=== PATIENT | male | born 1995 | race African-American/Black ===

== ENCOUNTER 2023-03-24 08:12 | Day surgery (SDC) | payer OTHER ==
[~2023-03-24] VITALS: Ht 177.8 cm; Wt 80.0 kg
[2023-03-24] VITALS (12 sets, daily range): BP systolic 111–126; BP diastolic 57–77; PULSE 54–72; RESP 10–16; TEMP 98.7; O2SAT 97–100
[2023-03-24] MEDS: famotidine 20mg tablet PO ONE (05:30)
[2023-03-24] MEDS: vancomycin 1,500 MG in NS 300ml IV soln IV ONE (05:30)
[2023-03-24] MEDS: ringers solution, lacted 1,000 ML IV SCH (05:30)
[2023-03-24] MEDS: cefazolin 2gm/D5W 100mL 100 ML IV ONE (05:30)
[~2023-03-24 08:12] MED LIST: LEVA15HF6 INH
[2023-03-24] MEDS ORDERED: epiNEPHrine 1 mg/ml 30ml MDV ONE (11:17)
[2023-03-24] MEDS ORDERED: cloNIDine hcl/PF 100mcg/ml inj ONE (11:32)
[2023-03-24] MEDS ORDERED: ROPIVAcaine 0.5% (5mg/ml) 30ml vial ONE ×2 (11:33→12:19)
[2023-03-24] MEDS ORDERED: midazolam 1 mg/ML 2ml injection ONE (11:34)
[2023-03-24] MEDS ORDERED: epiNEPHrine 1 mg/ml inj ONE (11:39)
[2023-03-24] MEDS ORDERED: ringers solution, lacted 1,000 ML IV SCH (11:40)
[2023-03-24] MEDS ORDERED: proCHLORperazine 10 MG/2 ml inj IV PRN (11:40)
[2023-03-24] MEDS ORDERED: morphine 2 MG/ML inj. syringe IV PRN (11:40)
[2023-03-24] MEDS ORDERED: meperidine/PF 25mg/ml syringe IV PRN ×2 (11:40)
[2023-03-24] MEDS ORDERED: hydrALAZINE 20mg/ml inj. IV PRN (11:40)
[2023-03-24] MEDS ORDERED: labetalol 20mg/4ml (5mg/ml) syringe IV PRN (11:40)
[2023-03-24] MEDS ORDERED: ondansetron/PF 4mg/2ml inj IV PRN (11:40)
[2023-03-24] MEDS ORDERED: morphine 4 MG/ML inj SYRINge IV PRN (11:40)
[2023-03-24] MEDS ORDERED: sevoflurane 250ml liquid IH ONE (11:41)
[2023-03-24] MEDS ORDERED: gelatin sponge, absorbable (Gelfoam 100) sponge TP ONE (11:49)
[2023-03-24] MEDS ORDERED: fentaNYL /PF 50mcg/ml 5ml ampule ONE (12:18)
[2023-03-24] MEDS ORDERED: dexamethasone sod phosphate 4mg/ml inj. ONE (12:19)
[2023-03-24] MEDS ORDERED: ondansetron/PF 4mg/2ml inj ONE (12:19)
[2023-03-24] MEDS ORDERED: LIDOcaine 2% (20mg/ml) 5ml vial ONE (12:19)
[2023-03-24] MEDS ORDERED: propofol inj 20 ML IV ONE (12:19)
[2023-03-24] MEDS: gelatin sponge, absorbable (Gelfoam 100) sponge TP ONE (13:34)
[2023-03-24] MEDS: Thrombin (Bovine) 5,000 unit vial TP ONE (13:35)
[2023-03-24] MEDS: ketorolac trometh. 30mg/ml inj. IV ONE (14:56)
[2023-03-24] MEDS: meperidine/PF 25mg/ml syringe IV PRN (14:57)
[2023-03-24] MEDS: HYDROcodone/acetaminophen 10/325mg tab PO ONE (15:31)
== END 2023-03-24 15:56 ==
LOC: PAS 08:12 → PAS IN 08:15 → UNDOADMIN 08:15 → PAS 15:56
PROVIDERS: ATTEND Orthopaedic Surgery
DX: S83.511A Sprain of anterior cruciate ligament of right knee, initial encounter (principal); S83.211A Bucket-handle tear of medial meniscus, current injury, right knee, initial encounter; J45.909 Unspecified asthma, uncomplicated; F43.10 Post-traumatic stress disorder, unspecified; G89.18 Other acute postprocedural pain; F20.9 Schizophrenia, unspecified; Z79.899 Other long term (current) drug therapy; X58.XXXA Exposure to other specified factors, initial encounter; Y92.89 Other specified places as the place of occurrence of the external cause; Y93.89 Activity, other specified; Y99.8 Other external cause status
CPT/HCPCS: 29881; 29888; 64447; 82948; C1713; J0690; J0735; J1100; J1885; J2175; J2250; J2405; J2704; J2795; J3010; J3370; J3490; J7030; J7120; L1832; Z7506; Z7508; Z7512; A4215; A4618; A6449; A7000; J0171